=== PATIENT | male | born 1975 | race Caucasian/White ===

== ENCOUNTER → 2017-08-08 | Emergency (ER) | payer OTHER ==
[~2017-08-08] VITALS: Ht 180.3 cm; Wt 78.5 kg
[~2017-08-08] MED LIST: KETO10TA2 PO
== END | disposition home or self-care (01) ==
LOC: ER 08:56
DX: R13.10 Dysphagia, unspecified (principal)

== ENCOUNTER 2020-05-09 10:45 | Emergency (ER) | payer OTHER ==
[~2020-05-09] VITALS: Ht 180.3 cm; Wt 81.6 kg
[2020-05-09] MEDS ORDERED: PEPCID AC20 MG PO (13:08)
[2020-05-09] MEDS ORDERED: MUCINEX DM ER1 EAC1 PO (13:08)
[2020-05-09] MEDS ORDERED: IBU600 MG PO (13:08)
[2020-05-09] MEDS ORDERED: FLONASE16 GM NASAL (13:08)
== END 2020-05-09 13:15 | disposition home or self-care (01) ==
LOC: ER 10:45
DX: K29.60 Other gastritis without bleeding (principal); R09.82 Postnasal drip; Z03.818 Encounter for observation for suspected exposure to other biological agents ruled out

== ENCOUNTER 2022-03-09 08:41 | Emergency (ER) | payer OTHER ==
[~2022-03-09] VITALS: Ht 180.3 cm; Wt 88.0 kg
[~2022-03-09 08:41] MED LIST changes: +FLONASE16 GM NASAL; +IBU600 MG PO; +MUCINEX DM ER1 EAC1 PO; +PEPCID AC20 MG PO
== END 2022-03-09 10:54 | disposition home or self-care (01) ==
LOC: ER 08:41
DX: M54.50 Low back pain, unspecified (principal)

== ENCOUNTER 2024-04-17 00:50 | Emergency (ER) | payer OTHER ==
[~2024-04-17] VITALS: Ht 180.3 cm; Wt 91.2 kg
[2024-04-17] MEDS ORDERED: KETOROLAC TROMETHAMINE 30 MG VIAL IV STA (02:31)
[2024-04-17] MEDS ORDERED: 0.9 % SODIUM CHLORIDE 1,000 ML IV ONE (02:45)
[2024-04-17 03:19] LABS: HEMATOCRIT 43.2 % (39.0-48.0); HEMOGLOBIN 15.2 g/dL (13-16.00); MEAN CELL VOLUME 85.7 fL (80.0-100.00); MEAN CORPUSCULAR HEMOGLOBIN 30.2 pg (27.00-32.0); MEAN CORPUSCULAR HGB CONC 35.2 g/dl (32.0-36.0); PLATELET COUNT 204 K/uL (150-450); RED BLOOD COUNT 5.03 M/uL (4.00-6.00); RED CELL DISTRIBUTION WIDTH 13.1 % (11.5-14.5)
[2024-04-17 03:31] LABS: BILIRUBIN TOTAL 0.96 mg/dL (0.3-1.2); CALCIUM 9.1 mg/dL (8.5-10.1); CREATININE SERUM 1.11 mg/dL (0.70-1.30); GFR 71.01; GLOBULINA 4.1 G/DL (2.4-3.5); POTASSIUM 4.29 mEq/L (3.5-5.1); TOTAL PROTEIN 8.1 gm/dL (6.4-8.2)
[2024-04-17 04:35] LABS: INR 0.97; PARTIAL THROMBOPLASTIN TIME 27.3 SECONDS (22.0-34.0); PROTHROMBIN TIME 10.6 SECONDS (9.0-11.5)
[2024-04-17 06:17] LABS: PH,URINE 5.5 (5.0-8.0); URINE APPEARANCE Clear; URINE BILIRRUBIN Negative (NEGATIVE); URINE BLOOD Negative; URINE COLOR Dark Yellow; URINE GLUCOSE Negative (NEGATIVE); URINE KETONE Negative (NEGATIVE); URINE LEUKOCYTE Negative; URINE NITRATE Negative; URINE PROTEIN Trace (NEGATIVE)
[2024-04-17 06:20] LABS: URINE BACTERIA 15.1 uL (0.0-1933); URINE EPITHELIAL CELLS 3.3 uL (0.0-38.8); URINE RBC 3.3 uL (0.0-20.8); URINE WBC 5.3 uL (0.0-23.2)
[2024-04-17 06:26] LABS: URINE CAST 0.15 uL (0.0-1.40)
[2024-04-17] MEDS ORDERED: LEVSIN/SL0.125 MG SL (08:15)
[2024-04-17] MEDS ORDERED: KETO10TA2 PO (08:15)
[2024-04-17 08:50] VITALS: BP 117/77; O2SAT 99
== END 2024-04-17 08:52 ==
LOC: ER 00:51
PROVIDERS: General Practice
DX: K52.9 Noninfective gastroenteritis and colitis, unspecified (principal); R10.32 Left lower quadrant pain; R10.9 Unspecified abdominal pain
CPT/HCPCS: 36415; 74177; Q9965